=== PATIENT | male | born 1945 | race American Indian/Alaskan Native ===

== ENCOUNTER 2017-03-18 16:53 | Observation (INO) | payer BC, MEDICARE ==
--- NOTE | 2017-03-18 17:48 | ED PDOC ---
Arrival/HPI - General Chief Complaint: GI Problem Time Seen by Provider: 03/18/17 16:58 Historian: Patient - History of Present Illness Narrative History of Present Illness (Text): 03/18/17 17:48 This 71 yo male presents to this ED c/o severe anaemia. Patient stated he had blood test last week, which result was given to patient today with Hg of 7. Patient stated he has had dark stool x 3-4 months. Patient has had a colonoscopy x 5 weeks ago, and Endoscopy x 1 week ago, which both were normal. Patient also noted a abdominal pain for one month, which it had improved 2 weeks ago. He said Dr. Mayer had ordered him to have a CT scan which was done 2 weeks ago. Patient denies dizziness, syncope, sob, cp, hematuria, fever, recent travel, or sick contact. Patient noted a PSA of 5. Patient stated he had a CT scan of abdomen pelvis x 2 weeks ago. 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 - Psychiatric Hx Substance Use: No - Anesthesia Hx Anesthesia: Yes Hx Anesthesia Reactions: No Hx Malignant Hyperthermia: No Family/Social History - Physician Review Nursing Documentation Reviewed: Yes Family/Social History: Other (noncontributory) Smoking Status: Never Smoked Hx Alcohol Use: No Hx Substance Use: No Allergies/Home Meds Allergies/Adverse Reactions: Allergies No Known Allergies Allergy (Verified 03/18/17 17:19) Home Medications: Home Meds Medication Instructions Recorded Confirmed Dicyclomine [Bentyl] 10 mg PO DAILY 03/18/17 03/18/17 Pantoprazole [Protonix EC Tab] 40 mg PO DAILY 03/18/17 03/18/17 Simvastatin [Zocor] 20 mg pe PO DAILY 03/18/17 03/18/17 Review of Systems - Review of Systems Constitutional: Normal. absent: Fatigue, Weight Change, Fevers Eyes: Normal ENT: Normal Respiratory: Normal. absent: SOB, Cough Cardiovascular: Normal. absent: Chest Pain, Palpitations Gastrointestinal: Normal. absent: Abdominal Pain, Nausea, Vomiting Genitourinary Male: Normal Musculoskeletal: Normal Skin: Normal Neurological: Normal Endocrine: Normal Hemo/Lymphatic: Normal Psychiatric: Normal Physical Exam Vital Signs Temp Pulse Resp BP Pulse Ox 03/18/17 17:50 98.2 F 78 18 146/69 100 03/18/17 16:54 99.3 F 83 18 146/69 100 Temperature: Afebrile Blood Pressure: Normal Pulse: Regular Respiratory Rate: Normal Appearance: Positive for: Well-Appearing, Non-Toxic, Comfortable Pain Distress: None Mental Status: Positive for: Alert and Oriented X 3 - Systems Exam Head: Present: Atraumatic, Normocephalic Pupils: Present: PERRL Extroacular Muscles: Present: EOMI Conjunctiva: Present: Normal Mouth: Present: Moist Mucous Membranes Neck: Present: Normal Range of Motion Respiratory/Chest: Present: Clear to Auscultation, Good Air Exchange. No: Respiratory Distress, Accessory Muscle Use Cardiovascular: Present: Regular Rate and Rhythm, Normal S1, S2. No: Murmurs Abdomen: Present: Normal Bowel Sounds. No: Tenderness, Distention, Peritoneal Signs Back: Present: Normal Inspection Upper Extremity: Present: Normal Inspection. No: Cyanosis, Edema Lower Extremity: Present: Normal Inspection. No: Edema Neurological: Present: GCS=15, CN II-XII Intact, Speech Normal Skin: Present: Warm, Dry, Normal Color. No: Rashes Psychiatric: Present: Alert, Oriented x 3, Normal Insight, Normal Concentration Medical Decision Making ED Course and Treatment: 03/18/17 19:16 Dr. Omalley spoke with Dr. Mayer who agreed with plan for observation admission I spoke with Patient regarding HG result, and he agreed with plan for observation. Patient agreed with plan for transfusion, and signed consent. Re-evaluation Time: 19:16 Reassessment Condition: Re-examined, Improving,but remains with symptoms - Lab Interpretations Lab Results: 03/18/17 18:30 03/18/17 18:30 Lab Results 03/18/17 18:43: Urine Color Yellow, Urine Appearance Clear, Urine pH 6.5, Ur Specific [place] 1.010, Urine Protein Negative, Urine Glucose (UA) Negative, Urine Ketones Negative, Urine Blood Negative, Urine Nitrate Negative, Urine Bilirubin Negative, Urine Urobilinogen 0.2, Ur Leukocyte Esterase Negative 03/18/17 18:30: Blood Type Pending, Antibody Screen Pending, BBK History Checked No verified bt 03/18/17 18:30: Sodium 140, Potassium 4.1, Chloride 105, Carbon Dioxide 26, Anion Gap 13, BUN 13, Creatinine 0.9, Est GFR ( Amer) > 60, Est GFR (Non- Af Amer) > 60, Random Glucose 97, Calcium 9.1, Total Bilirubin 0.7, AST 26, ALT 33, Alkaline Phosphatase 58, Lactate Dehydrogenase 395, Total Creatine Kinase 141, Troponin I < 0.01, Total Protein 6.6, Albumin 4.0, Globulin 2.6, Albumin/ Globulin Ratio 1.5, Amylase 92, Lipase 103 03/18/17 18:30: PT 13.8 H, INR 1.26 H, APTT 30.2 03/18/17 18:30: WBC 9.2, RBC 2.81 L, Hgb 6.9 L*, Hct 22.9 L, MCV 81.5, MCH 24.6 L, MCHC 30.1 L, RDW 15.8 H, Plt Count 273, MPV 9.0, Gran % 75.2 H, Lymph % (Auto ) 14.5 L, Whitley % (Auto) 6.6 H, Eos % (Auto) 3.5, Baso % (Auto) 0.2, Gran # 6.88 H, Lymph # 1.3, Whitley # 0.6, Eos # 0.3, Baso # 0.02 I have reviewed the lab results: Yes Interpretation: Abnormal lab values - RAD Interpretation Narrative RAD Interpretations (Text): 03/18/17 19:18 Patient Name / ID : JARAD HOLLAND / [id number] Exam Date : 03/18/2017 18:08:18 ( Approved ) Study Comment : Sex / Age : M / 71Y Creator : Diego Waters MD Dictator : Diego Waters MD Executor Of Estate : Director Of Institutional Giving : Diego Waters MD Approver2 : Report Date : 03/18/2017 18:54:34 My Comment : HISTORY: admission COMPARISON: No prior. FINDINGS: LUNGS: No active pulmonary disease. PLEURA: No significant pleural effusion identified, no pneumothorax apparent. CARDIOVASCULAR: Normal. OSSEOUS STRUCTURES: Prominent dextroscoliotic thoracic spinal deformity noted VISUALIZED UPPER ABDOMEN: Normal. OTHER FINDINGS: None. IMPRESSION: No acute cardiopulmonary disease appreciated. Prominent dextroscoliotic thoracic spinal deformity appreciated. Radiology Orders: 03/18/17 18:00 CHEST PORTABLE [RAD] Stat - EKG Interpretation Interpreted by ED Physician: Yes (NSR @ 69 bpm. Normal interval) Type: 12 lead EKG Comparison: No previous EKG avail. - Medication Orders Current Medication Orders: Sodium Chloride (Sodium Chloride 0.45%) 1,000 mls @ 30 mls/hr IV .Q24H [facility] Pantoprazole Sodium (Protonix Inj) 40 mg IVP DAILY [facility] Discontinued Medications Pantoprazole Sodium (Protonix Inj) 80 mg IVP STAT STA Stop: 03/18/17 18:01 Last Admin: 03/18/17 18:40 Dose: Not Given Non-Admin Reason: Patient Refused Disposition/Present on Arrival - Present on Arrival Any Indicators Present on Arrival: No History of DVT/PE: No History of Uncontrolled Diabetes: No Urinary Catheter: No History of Decub. Ulcer: No History Surgical Site Infection Following: None - Disposition Have Diagnosis and Disposition been Completed?: Yes Diagnosis: GIB (gastrointestinal bleeding), Anemia Disposition: HOSPITALIZED Disposition Time: 19:43 Patient Plan: Admission Patient Problems: Current Active Problems Problem Status Onset GIB (gastrointestinal bleeding) Acute Condition: STABLE Referrals: Reid Mayer DO [Primary Care Provider] - Follow up with primary Forms: [employer] ([place])
[2017-03-18 18:39] LABS: BASO # 0.02 K/mm3 (0.0-2.0); BASO % 0.2 % (0.0-3.0); EOS # 0.3 (0.0-0.7); EOS % 3.5 % (1.5-5.0); GRAN # 6.88 (1.4-6.5); GRAN % 75.2 % (50.0-68.0); LYMPH # 1.3 (1.2-3.4); LYMPH % 14.5 % (22.0-35.0); MEAN CELL VOLUME 81.5 fl (80.0-105.0); MEAN CORPUSCULAR HEMOGLOBIN 24.6 pg (25.0-35.0); MEAN CORPUSCULAR HGB CONC 30.1 g/dl (31.0-37.0); MONO # 0.6 (0.1-0.6); MONO % 6.6 % (1.0-6.0); RED CELL DISTRIBUTION WIDTH 15.8 % (11.5-14.5); WHITE BLOOD COUNT 9.2 10^3/ul (4.5-11.0)
[2017-03-18 18:42] LABS: HEMATOCRIT 22.9 % (42.0-52.0)
[2017-03-18 18:48] LABS: PH,URINE 6.5 (4.7-8.0); URINE BILIRUBIN NEGATIVE (NEGATIVE); URINE BLOOD NEGATIVE (NEGATIVE); URINE GLUCOSE (UA) NEGATIVE (NEGATIVE); URINE KETONE NEGATIVE (NEGATIVE); URINE LEUKOCYTE ESTERASE NEGATIVE Leu/uL (NEGATIVE); URINE PROTEIN NEGATIVE mg/dL (<30 mg/dL); URINE UROBILINOGEN 0.2 E.U./dL (<1 E.U./dL)
[2017-03-18 18:49] LABS: URINE APPEARANCE CLEAR (CLEAR); URINE COLOR YELLOW (YELLOW)
[2017-03-18 18:49] LABS: INR 1.26 (0.93-1.08); PARTIAL THROMBOPLASTIN TIME 30.2 Seconds (25.1-36.5)
[2017-03-18 18:53] LABS: ALB/GLOB RATIO 1.5 (1.1-1.8); ALKALINE PHOSPHATASE 58 U/L (38-126); ALT/SGPT 33 U/L (7-56); AMYLASE 92 U/L (35-125); AST/SGOT 26 U/L (17-59); BILIRUBIN,TOTAL 0.7 mg/dL (0.2-1.3); BLOOD UREA NITROGEN 13 mg/dL (7-21); CALCIUM 9.1 mg/dL (8.4-10.5); CARBON DIOXIDE 26 mmol/L (21-33); CHLORIDE 105 mmol/L (98-107); GFR AFRICAN-AMERICAN > 60; GLUCOSE,RANDOM 97 mg/dL (70-110); LIPASE 103 U/L (23-300); POTASSIUM 4.1 mmol/L (3.6-5.0); SODIUM 140 mmol/L (132-148); TOTAL PROTEIN 6.6 g/dL (5.8-8.3)
--- NOTE | 2017-03-18 18:55 | RAD ---
HISTORY: admission COMPARISON: No prior. FINDINGS: LUNGS: No active pulmonary disease. PLEURA: No significant pleural effusion identified, no pneumothorax apparent. CARDIOVASCULAR: Normal. OSSEOUS STRUCTURES: Prominent dextroscoliotic thoracic spinal deformity noted VISUALIZED UPPER ABDOMEN: Normal. OTHER FINDINGS: None. IMPRESSION: No acute cardiopulmonary disease appreciated. Prominent dextroscoliotic thoracic spinal deformity appreciated.
[2017-03-18 19:04] LABS: TROPONIN I < 0.01 ng/mL
[2017-03-18] MEDS ORDERED: Sodium Chloride 0.45% 1,000 ML IV SCH (19:30)
--- NOTE | 2017-03-18 21:50 | CARD ---
APPROVED REPORT EKG Measurement Heart [id number] <Conclusion> Normal sinus rhythm Minimal voltage criteria for LVH, may be normal variant Borderline ECG
--- NOTE | 2017-03-19 01:39 | HP ---
HISTORY OF PRESENT ILLNESS: I spoke to [place] today. I did an outpatient blood test on him. He was not feeling well. Also, he has been loosing weight. He had a 30 plus pound weight loss. He also had a CAT scan of the abdomen and pelvis, he told me on that of 2 week's ago and that was normal by his bus and sys integration senior manager, Dr. Olguin, but he comes in today because I called him to come to the emergency room because his hemoglobin was 7.1 and in the emergency room here at 6.9. He had a history of weight loss. He also had a negative CAT scan of the abdomen and pelvis done 2 week's ago. This is a 71-year-old man who has got some lethargy, tiredness, weakness. He is anemic, severe with 6.9 hemoglobin in the emergency room, and we are going to put him in for transfusions, get a GI consult, and IV fluids. He has a PSA of 5 in the past. No chest pain. No shortness of breath. No hematuria. No fever. No recent travel, No sick contacts. No dizziness. No syncope. PAST MEDICAL HISTORY: He has been having GI bleed for the past 24 years. He has high cholesterol. PAST SURGICAL HISTORY: No real surgical history. SOCIAL HISTORY: No smoking. No drinking. No drugs. FAMILY HISTORY: Has dementia and hypertension in the family. ALLERGIES: NO KNOWN DRUG ALLERGIES. MEDICATIONS: Takes Bentyl, Protonix and Zocor. REVIEW OF SYSTEMS: He has a weight loss of 30 pounds in the past 3 to 4 months. No vision changes, no hearing changes. No sore throat. No neck pain. No chest pain or shortness of breath. No abdominal pain. No nausea, vomiting, constipation, diarrhea, but he does have a history of GI bleed in the past. He does not take any NSAIDs. No extremity issues, no skin issues, no nervous, no anxiety, no sweats. PHYSICAL EXAMINATION VITAL SIGNS: He has a 98.2 temp, 78 pulse, 18 respiratory rate, 146/69 blood pressure, 100% O2 sat on room air. GENERAL: He is well appearing, comfortable, non-toxic. No chest pain or anything like that. He is comfortable. He understands the situation. Alert and oriented x3. HEENT: Head is atraumatic and normocephalic. Extraocular muscles are intact. Pupils are equal, reactive to light and accommodation. Throat is moist. NECK: Supple. HEART: Regular rate. Normal S1, S2. LUNGS: Clear to auscultation bilaterally. No wheezes, no rhonchi, no rales. ABDOMEN: Soft and nontender. Positive bowel sounds. No guarding. No rebound. No CVA tenderness. Normal exam. EXTREMITIES: No edema. NEUROLOGIC: GCS is 15. Cranial nerves II through XII grossly intact. Normal speech. Alert and oriented x3. SKIN: Skin is warm and dry. No rashes or ulcers. LYMPHATICS: Thyroid is midline. No palpable appreciable lymphadenopathy. LABORATORY DATA: He has had lab tests here. He has a urine that is clean, 140 sodium, potassium 4.1, BUN 13, creatinine 0.9, GFR is greater than 60, sugar is 97, calcium is 9.1, total bilirubin is 0.7, AST is 26, ALT is 33, alkaline phosphatase 58. Lactate dehydrogenase is 395. Total creatinine kinase is 141. Troponin I is less than 0.01. Total protein is 6.6. Albumin is 4. Globulin is 2.6. Amylase is 92, lipase is 103. INR is 1.26. He has a 9.2 white count, 6.9 hemoglobin, 22.9 hematocrit with 273 platelets. Chest x-ray is showing no acute cardiopulmonary disease appreciated. Prominent dextroscoliosis thoracic spinous deformity. He is here with acute anemia, weight loss. He is being followed on the outpatient by Dr. Olguin, GI. We will get Dr. Vaughn here in [place]. My plan is to put him in and transfuse him to get him above 10. He had a CAT scan 2 weeks' ago that was normal. We will get him up tomorrow observation for 24 hours, transfuse him above 10 and then follow up outpatient GI workup. He is extremely anemic. Reid Mayer DO
[2017-03-19 04:05] VITALS: BMI 22.0
[2017-03-19 07:09] LABS: HEMATOCRIT 24.9 % (42.0-52.0); MEAN CELL VOLUME 80.6 fl (80.0-105.0); MEAN CORPUSCULAR HEMOGLOBIN 24.9 pg (25.0-35.0); MEAN CORPUSCULAR HGB CONC 30.9 g/dl (31.0-37.0); MEAN PLATELET VOLUME 9.3 fl (7.0-11.0); RED CELL DISTRIBUTION WIDTH 16.1 % (11.5-14.5); WHITE BLOOD COUNT 7.4 10^3/ul (4.5-11.0)
[2017-03-19 07:14] LABS: ALB/GLOB RATIO 1.4 (1.1-1.8); ALKALINE PHOSPHATASE 51 U/L (38-126); ALT/SGPT 28 U/L (7-56); AST/SGOT 30 U/L (17-59); BILIRUBIN,TOTAL 0.8 mg/dL (0.2-1.3); BLOOD UREA NITROGEN 13 mg/dL (7-21); CALCIUM 8.9 mg/dL (8.4-10.5); CARBON DIOXIDE 26 mmol/L (21-33); CHLORIDE 109 mmol/L (98-107); GFR AFRICAN-AMERICAN > 60; GLUCOSE,RANDOM 98 mg/dL (70-110); POTASSIUM 3.9 mmol/L (3.6-5.0); SODIUM 141 mmol/L (132-148); TOTAL PROTEIN 5.9 g/dL (5.8-8.3)
--- NOTE | 2017-03-19 09:32 | CP.PCM.CON ---
<Lucy Powell - Last Filed: 03/19/17 12:15> History of Present Illness - History of Present Illness History of Present Illness: GI Fellow PGY4 Consult Note This is a 71yM with pmhx of HLD and GI bleeding presenting to the ER sent by PCP Dr. Mayer for anemia with Hgb 6.9. Pt reports a hx of GI bleeding over 45years with hx of duodenal ulcer in the past. Pt denies hx of H.pylori, NSAID use. Pt reports he has been okay for 10yr but about 4months ago started having dark stools and associated abdominal pain. Pt's Hgb has been trending down and was seen by his GI Dr. Olguin and had EGDx2 within 120 days that was negative and Colonoscopy 1month ago that was negative. Pt reports he has had multiple scopes over the years with no clear etiology of GI bleed except duodenal ulcer found one time. He has also been seen by Hematology with bone seneca biopsy 20+ years ago with no diagnosis. Pt had a capsule study 10+ years ago that was negative but nothing recently. Pt also reports 25-30pound weight loss in 4months unintentional and had a CT scan A/P by PCP 2 weeks ago that was reportedly normal except prostate enlargement with PSA of 5 and plan for outpt prostate biopsy. Pt has received 1U PRBCs with Hgb of 7.7 this morning. 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 - PSYCHIATRIC Hx Substance Use: No - SURGICAL HISTORY Hx Appendectomy: Yes - ANESTHESIA Hx Anesthesia: Yes Hx Anesthesia Reactions: No Hx Malignant Hyperthermia: No Meds Allergies/Adverse Reactions: Allergies Allergy/AdvReac Type Severity Reaction Status Date / Time No Known Allergies Allergy Verified 03/18/17 17:19 - Medications Medications: Current Medications Sodium Chloride (Sodium Chloride 0.45%) 1,000 mls @ 30 mls/hr IV .Q24H [facility] Last Admin: 03/19/17 01:28 Dose: 30 mls/hr Pantoprazole Sodium (Protonix Inj) 40 mg IVP BID [facility] Physical Exam - Constitutional Appears: Well, Non-toxic, No Acute Distress - Head Exam Head Exam: ATRAUMATIC, NORMAL INSPECTION, NORMOCEPHALIC - Eye Exam Eye Exam: EOMI, Normal appearance, PERRL Pupil Exam: PERRL - ENT Exam ENT Exam: Mucous Membranes Moist, Normal Exam - Neck Exam Neck exam: Positive for: Normal Inspection - Respiratory Exam Respiratory Exam: Clear to Auscultation Bilateral, NORMAL BREATHING PATTERN - Cardiovascular Exam Cardiovascular Exam: REGULAR RHYTHM, RRR, +S1, +S2 - GI/Abdominal Exam GI & Abdominal Exam: Normal Bowel Sounds, Soft. absent: Distended, Organomegaly , Tenderness - Rectal Exam Rectal Exam: Deferred - Extremities Exam Extremities exam: Positive for: full ROM, normal inspection - Back Exam Back exam: NORMAL INSPECTION - Neurological Exam Neurological exam: Alert, Oriented x3 - Psychiatric Exam Psychiatric exam: Normal Affect, Normal Mood - Skin Skin Exam: Dry, Intact, Normal Color, Warm Results - Vital Signs Recent Vital Signs: Last Vital Signs Temp 97.9 F 03/19/17 08:42 Pulse 72 03/19/17 08:42 Resp 20 03/19/17 08:42 BP 109/61 03/19/17 08:42 Pulse Ox 97 03/19/17 08:42 - Labs Result Diagrams: 03/19/17 09:40 03/19/17 06:40 Labs: Laboratory Results - last 24 hr 03/19/17 03/19/17 06:40 06:40 WBC 7.4 RBC 3.09 L Hgb 7.7 L Hct 24.9 L MCV 80.6 MCH 24.9 L MCHC 30.9 L RDW 16.1 H Plt Count 276 MPV 9.3 Sodium 141 Potassium 3.9 Chloride 109 H Carbon Dioxide 26 Anion Gap 10 BUN 13 Creatinine 0.9 Est GFR ( Amer) > 60 Est GFR (Non-Af Amer) > 60 Random Glucose 98 Calcium 8.9 Total Bilirubin 0.8 AST 30 ALT 28 Alkaline Phosphatase 51 Total Protein 5.9 Albumin 3.4 Globulin 2.5 Albumin/Globulin Ratio 1.4 Assessment & Plan - Assessment and Plan (Free Text) Assessment: This is a 71yM presenting with anemia Hgb 6.9. 1. Anemia 2. Hx of GI bleed Plan: -Continue supportive care with blood transfusion with Hgb >7.0 -No active bleeding at this time, hemodynamically stable, monitor H/H and transfuse as needed -Pt had an EGD 1 week ago and colonoscopy 1 month ago that were negative -Recommend close follow up with primary GI Dr. Olguin as an outpt and pt will benefit from Capsule study to evaluate small bowel for GI bleed -No plan for emergent endoscopic evaluation at this time -Continue protonix po daily -Diet as tolerated -Please call with any questions or concerns <Alexandria Baltazar MD - Last Filed: 03/19/17 16:13> Meds - Medications Medications: Current Medications Sodium Chloride (Sodium Chloride 0.45%) 1,000 mls @ 30 mls/hr IV .Q24H [facility] Last Admin: 03/19/17 01:28 Dose: 30 mls/hr Pantoprazole Sodium (Protonix Inj) 40 mg IVP BID [facility] Last Admin: 03/19/17 09:08 Dose: 40 mg Results - Vital Signs Recent Vital Signs: Last Vital Signs Temp 98.1 F 03/19/17 16:04 Pulse 62 03/19/17 16:04 Resp 16 03/19/17 16:04 BP 122/68 03/19/17 16:04 Pulse Ox 97 03/19/17 08:42 - Labs Result Diagrams: 03/19/17 09:40 03/19/17 06:40 Labs: Laboratory Results - last 24 hr 03/19/17 03/19/17 03/19/17 06:40 06:40 09:40 WBC 7.4 7.2 RBC 3.09 L 3.13 L Hgb 7.7 L 7.9 L Hct 24.9 L 25.3 L MCV 80.6 80.8 MCH 24.9 L 25.2 MCHC 30.9 L 31.2 RDW 16.1 H 16.2 H Plt Count 276 243 MPV 9.3 8.7 Sodium 141 Potassium 3.9 Chloride 109 H Carbon Dioxide 26 Anion Gap 10 BUN 13 Creatinine 0.9 Est GFR ( Amer) > 60 Est GFR (Non-Af Amer) > 60 Random Glucose 98 Calcium 8.9 Total Bilirubin 0.8 AST 30 ALT 28 Alkaline Phosphatase 51 Total Protein 5.9 Albumin 3.4 Globulin 2.5 Albumin/Globulin Ratio 1.4 Attending/Attestation - Attestation I have personally seen and examined this patient.: Yes I have fully participated in the care of the patient.: Yes I have reviewed all pertinent clinical information: Yes Notes (Text): 03/19/17 16:11 Patient seen with GI fellow. This is a 71 yr old M presenting with anemia Hgb 6.9 without overt Gi bleeding. He is s/p EGD 1 week ago and colonoscopy 1 month ago which was negative at [facility] with Dr Olguin. He has follow up appointment with outside GI. Likely needs capsule study. Hemodynamically stable. s/p blood transfusions with appropriate response. Diet as tolerated. Thank you for letting us participate in the care of your patient
[2017-03-19 09:58] LABS: HEMATOCRIT 25.3 % (42.0-52.0); MEAN CELL VOLUME 80.8 fl (80.0-105.0); MEAN CORPUSCULAR HEMOGLOBIN 25.2 pg (25.0-35.0); MEAN CORPUSCULAR HGB CONC 31.2 g/dl (31.0-37.0); MEAN PLATELET VOLUME 8.7 fl (7.0-11.0); RED CELL DISTRIBUTION WIDTH 16.2 % (11.5-14.5); WHITE BLOOD COUNT 7.2 10^3/ul (4.5-11.0)
[2017-03-19 11:10] VITALS: RESP 16
--- NOTE | 2017-03-19 13:36 | DS ---
HISTORY OF PRESENT ILLNESS: I saw [place], resting comfortably this morning, slept well last night. He had some blood transfused. In no acute distress. No chest pain or shortness of breath. No abdominal pain. PHYSICAL EXAMINATION: VITAL SIGNS: He has 98.1 temperature, 71 pulse, 122/63 blood pressure, and 20 respiratory rate. HEENT: Head is atraumatic and normocephalic. Throat is moist. NECK: Supple. HEART: Regular rate. LUNGS: Clear to auscultation. ABDOMEN: Soft and nontender. Positive bowel sounds. No guarding. No rebound. No CVA tenderness. EXTREMITIES: There is no edema. LABORATORY DATA: He has a white count that is 7.4, hemoglobin up to 7.7, his hematocrit is 24.9, and platelets are 276. He has a 141 sodium, potassium is 3.9, BUN is 13, and creatinine is 0.9. GFR is greater than 60. Sugar is 98, calcium is 8.9, and total bilirubin is 0.8. AST is 30, ALT is 28, alkaline phosphatase is 212, and total protein is 5.9. Troponin I is less than 0.01. Albumin is 2.5. ASSESSMENT AND PLAN: He is going to get 2 more units of packed red blood cells today. I am going to get a STAT CBC afterwards and hoping to discharge him later today to further outpatient workup with his manager pest, on the outpatient and hopefully he is going to do very well. He is here for acute anemia, asymptomatic for the most part. He is on observation. Once we get his hemoglobin above 10 or close to, we will send him to outpatient workup for Gastroenterology. Reid Mayer DO MELANIA
[2017-03-19 16:41] VITALS: O2SAT 100
[2017-03-19 19:35] VITALS: BP 157/74; PULSE 64; TEMP 97.9
[2017-03-19 19:59] LABS: HEMATOCRIT 33.3 % (42.0-52.0); MEAN CORPUSCULAR HEMOGLOBIN 26.4 pg (25.0-35.0); MEAN CORPUSCULAR HGB CONC 31.8 g/dl (31.0-37.0); MEAN PLATELET VOLUME 9.6 fl (7.0-11.0); RED CELL DISTRIBUTION WIDTH 16.1 % (11.5-14.5); WHITE BLOOD COUNT 9.6 10^3/ul (4.5-11.0)
== END 2017-03-19 22:00 | disposition home or self-care (01) ==
LOC: ED 16:53 → MERGE 19:07 → ERH 19:07 → 5RNO 20:51
PROVIDERS: ADMIT Family Medicine; ATTEND Family Medicine
DX: D64.9 Anemia, unspecified (principal)
CPT/HCPCS: 36415; 36430; 71010; 80053; 81003; 82150; 82550; 83615; 83690; 84484; 85025; 85027; 85610; 85730; 86850; 86860; 86870; 86900; 86920; 86921; 86922; 93005; 99284; C9113; J7030; P9016

== ENCOUNTER 2017-06-02 06:25 | Day surgery (SDC) | payer BC, MEDICARE ==
[2017-05-30 12:05] VITALS: BMI 21.9
[2017-06-02] MEDS ORDERED: Lidocaine 2% Inj (20ml) ONE (07:08)
[2017-06-02] MEDS ORDERED: Midazolam 2 MG/2 ML VIAL ONE ×2 (07:09→08:59)
[2017-06-02] MEDS ORDERED: HEPARIN SODIUM/NS 2,000 ML IV ONE (07:09)
[2017-06-02] MEDS ORDERED: Iodixanol 320 MG/ML 200 ML BOTTLE IV ONE (07:09)
[2017-06-02 07:21] LABS: BASO # 0.04 K/mm3 (0.0-2.0); BASO % 0.6 % (0.0-3.0); EOS # 0.3 (0.0-0.7); EOS % 4.6 % (1.5-5.0); GRAN # 4.85 (1.4-6.5); GRAN % 69.4 % (50.0-68.0); LYMPH # 1.2 (1.2-3.4); LYMPH % 16.8 % (22.0-35.0); MEAN CELL VOLUME 75.9 fl (80.0-105.0); MEAN CORPUSCULAR HEMOGLOBIN 21.8 pg (25.0-35.0); MEAN CORPUSCULAR HGB CONC 28.7 g/dl (31.0-37.0); MONO # 0.6 (0.1-0.6); MONO % 8.6 % (1.0-6.0); RBC 3.03 10^6/uL (3.5-6.1); RED CELL DISTRIBUTION WIDTH 19.4 % (11.5-14.5)
[2017-06-02 07:29] LABS: HEMOGLOBIN 6.6 g/dL (14.0-18.0)
[2017-06-02 07:31] LABS: BLOOD UREA NITROGEN 12 mg/dL (7-21); CALCIUM 9.5 mg/dL (8.4-10.5); GFR AFRICAN-AMERICAN > 60; GFR NON-AFRICAN AMERICAN > 60; HDL CHOLESTEROL 44 mg/dL (29-60)
[2017-06-02 07:36] LABS: INR 1.18 (0.93-1.08); PARTIAL THROMBOPLASTIN TIME 27.5 Seconds (25.1-36.5); PROTHROMBIN TIME 13.6 SECONDS (9.4-12.5)
[2017-06-02 07:42] LABS: LDL CHOLESTEROL 62 mg/dL (0-129)
[2017-06-02] MEDS ORDERED: Iohexol 350mgl/ml 50 ML ONE (09:13)
[2017-06-02] MEDS ORDERED: Sodium Chloride 0.9% 1,000 ML IV SCH (09:30)
[2017-06-02 10:09] VITALS: TEMP 97.8
--- NOTE | 2017-06-02 10:19 | CARDCATH ---
PROCEDURE DATE: 06/02/2017 HISTORY: The patient is a 72-year-old male who presents with persistent exertional shortness of breath and angina. He is known to have marked anemia without evidence for GI blood loss. He also suffers from hypertension and hypercholesterolemia; because of this, cardiac catheterization was recommended. PROCEDURE: Left heart catheterization with coronary arteriography and left ventriculogram. The right femoral artery was cannulated with a 6-Sinhala sheath. There were no complications. I performed moderate sedation which included the presence of an independent trained observer that assisted in monitoring the patient's level of consciousness and physiologic status. After administration of Versed and fentanyl, my intra-service time was 15 minutes. Findings on catheterization revealed the left ventricle that contracted normally. Estimated ejection fraction of 60%. Supra-aortic valvular injection revealed no aortic insufficiency. The patient's coronary arteries were right dominant circulation. The RCA was free of significant disease. The left main artery and LAD revealed diffuse calcification. The LAD had no critical lesions. The LAD in its midportion revealed a 50% stenosis. At the ostium of the diagonal vessel, there was a 60% stenosis noted. The circumflex artery and obtuse marginal branches were free of significant disease. Angio-Seal was used to close the femoral artery site. The patient tolerated the procedure well. In summary, the procedure revealed normal LV function. Calcification in the coronary tree. A 50% stenosis in the mid LAD with a 60% stenosis in the ostium of the diagonal vessel. Given these findings, the patient's treatment should be medical therapy with aspirin as well as statin therapy. The patient will need a galley stripper to investigate the reason for his severe anemia. Braeden Barrios MD
[2017-06-02 13:54] VITALS: PULSE 69; O2SAT 99
--- NOTE | 2017-06-02 14:01 | CARD ---
APPROVED REPORT EKG Measurement Heart [id number] <Conclusion> Normal sinus rhythm Moderate voltage criteria for LVH, may be normal variant Borderline ECG
[2017-06-02 15:21] VITALS: BP 124/64; RESP 20
== END 2017-06-02 15:30 | disposition home or self-care (01) ==
LOC: CATH 06:25
PROVIDERS: ATTEND Internal Medicine Cardiovascular Disease
DX: I25.119 Atherosclerotic heart disease of native coronary artery with unspecified angina pectoris (principal); D64.9 Anemia, unspecified; R06.02 Shortness of breath; I10 Essential (primary) hypertension; E78.00 Pure hypercholesterolemia, unspecified
CPT/HCPCS: 36415; 80048; 80061; 85025; 85610; 85730; 86850; 86870; 86900; 93005; 93458; 99152; C1760; C1769; C2629; J1644; J2250; J3010; J7030; J7040; Q9967

== ENCOUNTER 2017-06-06 17:16 | Observation (INO) | payer BC, MEDICARE ==
[2017-06-06 17:17] VITALS: BMI 21.9
--- NOTE | 2017-06-06 18:16 | ED PDOC ---
Arrival/HPI - General Chief Complaint: Abnormal Labs Time Seen by Provider: 06/06/17 17:35 Historian: Patient - History of Present Illness Narrative History of Present Illness (Text): 06/06/17 18:15 A 72 year old male was sent in by PMD to the emergency department for low blood count. Patient reports he saw PMD a few days ago, had blood work done. Notes he had a catheterization done this week. Patient denies any abdominal pain, blood in stools, vomiting or any other complaints at this time. PMD: Dr. Bravo Symptom Onset: Sudden Symptom Course: Unchanged Activities at Onset: Rest Context: Home Past Medical History - Provider Review Nursing Documentation Reviewed: Yes - Cardiac Hx Cardiac Disorders: No Hx Pacemaker: No - Pulmonary Hx Respiratory Disorders: No - Neurological Hx Neurological Disorder: No Hx Paralysis: No - HEENT Hx HEENT Disorder: No - Renal Hx Renal Disorder: No - Endocrine/Metabolic Hx Endocrine Disorders: No - Hematological/Oncological Hx Blood Disorders: Yes Hx Blood Transfusions: Yes (03/2017) Hx Blood Transfusion Reaction: No - Integumentary Hx Dermatological Disorder: No - Musculoskeletal/Rheumatological Hx Musculoskeletal Disorders: No - Gastrointestinal Hx Gastrointestinal Disorders: Yes Other/Comment: 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 - Genitourinary/Gynecological Hx Genitourinary Disorders: No - Psychiatric Hx Psychophysiologic Disorder: No Hx Emotional Abuse: No Hx Physical Abuse: No Hx Substance Use: No - Surgical History Hx Cardiac Catheterization: Yes Other/Comment: Pill cam, colonoscopy - Anesthesia Hx Anesthesia Reactions: No Hx Malignant Hyperthermia: No - Suicidal Assessment Feels Threatened In Home Enviroment: No Family/Social History - Physician Review Nursing Documentation Reviewed: Yes Family/Social History: No Known Family HX Smoking Status: Former Smoker Hx Alcohol Use: Yes ([employer]) Hx Substance Use: No Allergies/Home Meds Allergies/Adverse Reactions: Allergies No Known Allergies Allergy (Verified 06/06/17 17:33) Home Medications: Home Meds Medication Instructions Recorded Confirmed Dicyclomine [Bentyl] 10 mg PO DAILY 03/18/17 06/06/17 Pantoprazole [Protonix EC Tab] 40 mg PO DAILY 03/18/17 06/06/17 Simvastatin [Zocor] 20 mg pe PO DAILY 03/18/17 06/06/17 Aspirin [Ecotrin] 81 mg PO DAILY 05/30/17 06/06/17 Review of Systems - Physician Review All systems were reviewed & negative as marked: Yes - Review of Systems Constitutional: absent: Fevers Gastrointestinal: absent: Abdominal Pain, Stool Changes, Vomiting Physical Exam Vital Signs Reviewed: Yes Vital Signs Temp Pulse Resp BP Pulse Ox 06/06/17 21:33 97.6 F 68 16 139/80 06/06/17 21:00 97.8 F 63 16 129/60 100 06/06/17 20:48 97.8 F 77 16 129/60 06/06/17 20:30 97.2 F L 60 16 130/58 L 06/06/17 19:17 97.8 F 61 16 169/67 H 100 06/06/17 17:25 97.8 F 70 18 153/75 H 99 Temperature: Afebrile Blood Pressure: Hypertensive Pulse: Regular Respiratory Rate: Normal Appearance: Positive for: Well-Appearing, Non-Toxic, Comfortable Pain Distress: None Mental Status: Positive for: Alert and Oriented X 3 - Systems Exam Head: Present: Atraumatic, Normocephalic Pupils: Present: PERRL Extroacular Muscles: Present: EOMI Conjunctiva: Present: Normal Mouth: Present: Moist Mucous Membranes Neck: Present: Normal Range of Motion Respiratory/Chest: Present: Clear to Auscultation, Good Air Exchange. No: Respiratory Distress, Accessory Muscle Use Cardiovascular: Present: Regular Rate and Rhythm, Normal S1, S2. No: Murmurs Abdomen: Present: Normal Bowel Sounds. No: Tenderness, Distention, Peritoneal Signs Back: Present: Normal Inspection Upper Extremity: Present: Normal Inspection. No: Cyanosis, Edema Lower Extremity: Present: Normal Inspection. No: Edema Neurological: Present: GCS=15, CN II-XII Intact, Speech Normal Skin: Present: Warm, Dry, Normal Color. No: Rashes Psychiatric: Present: Alert, Oriented x 3, Normal Insight, Normal Concentration Medical Decision Making ED Course and Treatment: 06/06/17 18:14 Impression: A 72 year old male with low hemoglobin. Plan: -- labs -- Reassess and disposition Prior Visits: Notes and results from previous visits were reviewed. Patient was last seen in the emergency department on 03/18/17 for evaluation of anemia. Progress Notes: 06/06/17 22:21 guiac neg[address] dr bravo bedside - Lab Interpretations Lab Results: 06/06/17 18:10 06/06/17 18:10 Lab Results 06/06/17 18:10: Sodium 141, Potassium 4.6, Chloride 105, Carbon Dioxide 24, Anion Gap 17, BUN 14, Creatinine 0.8, Est GFR ( Amer) > 60, Est GFR (Non- Af Amer) > 60, Random Glucose 88, Calcium 9.7, Total Bilirubin 0.6, AST 26, ALT 28, Alkaline Phosphatase 54, Total Protein 6.2, Albumin 3.5, Globulin 2.7, Albumin/Globulin Ratio 1.3 06/06/17 18:10: PT 14.1 H, INR 1.23 H, APTT 28.5 06/06/17 18:10: WBC 8.3, RBC 2.90 L, Hgb 6.5 L*, Hct 22.9 L, MCV 79.0 L D, MCH 22.4 L, MCHC 28.4 L, RDW 23.0 H, Plt Count 354, MPV 9.5, Gran % 75.9 H, Lymph % (Auto) 11.9 L, [place] % (Auto) 9.3 H, Eos % (Auto) 2.7, Baso % (Auto) 0.2, Gran # 6.29, Lymph # (Auto) 1.0 L, [place] # (Auto) 0.8 H, Eos # (Auto) 0.2, Baso # (Auto ) 0.02 I have reviewed the lab results: Yes - Medication Orders Current Medication Orders: Aspirin (Ecotrin) 81 mg PO DAILY [facility] Atorvastatin Calcium (Lipitor) 10 mg PO DIN [facility] Sodium Chloride (Sodium Chloride 0.45%) 1,000 mls @ 40 mls/hr IV .Q24H LUIS FERNANDO Last Admin: 06/06/17 20:45 Dose: 40 mls/hr eMAR Start Stop Document 06/06/17 20:45 AB (Rec: 06/06/17 20:46 AB [email or web address]) Intravenous Solution Start Date 06/06/17 Start Time 19:00 End Date 06/06/17 Pantoprazole Sodium (Protonix Inj) 40 mg IVP DAILY LUIS FERNANDO - Scribe Statement The provider has reviewed the documentation as recorded by the Olu Sloan Provider Scribe Attestation: All medical record entries made by the Olu were at my direction and personally dictated by me. I have reviewed the chart and agree that the record accurately reflects my personal performance of the history, physical exam, medical decision making, and the department course for this patient. I have also personally directed, reviewed, and agree with the discharge instructions and disposition. Disposition/Present on Arrival - Present on Arrival Any Indicators Present on Arrival: No History of DVT/PE: No History of Uncontrolled Diabetes: No Urinary Catheter: No History of Decub. Ulcer: No History Surgical Site Infection Following: None - Disposition Have Diagnosis and Disposition been Completed?: Yes Diagnosis: Anemia Disposition: HOSPITALIZED Disposition Time: 08:00 Condition: STABLE
[2017-06-06 18:22] LABS: BASO # 0.02 K/mm3 (0.0-2.0); BASO % 0.2 % (0.0-3.0); EOS # 0.2 (0.0-0.7); EOS % 2.7 % (1.5-5.0); GRAN # 6.29 (1.4-6.5); GRAN % 75.9 % (50.0-68.0); LYMPH % 11.9 % (22.0-35.0); MEAN CORPUSCULAR HEMOGLOBIN 22.4 pg (25.0-35.0); MEAN CORPUSCULAR HGB CONC 28.4 g/dl (31.0-37.0); MEAN PLATELET VOLUME 9.5 fl (7.0-11.0); MONO # 0.8 (0.1-0.6); MONO % 9.3 % (1.0-6.0); RBC 2.9 10^6/uL (3.5-6.1); WHITE BLOOD COUNT 8.3 10^3/ul (4.5-11.0)
[2017-06-06 18:28] LABS: HEMOGLOBIN 6.5 g/dL (14.0-18.0)
[2017-06-06 18:33] LABS: INR 1.23 (0.93-1.08); PARTIAL THROMBOPLASTIN TIME 28.5 Seconds (25.1-36.5); PROTHROMBIN TIME 14.1 SECONDS (9.4-12.5)
[2017-06-06 18:34] LABS: ALB/GLOB RATIO 1.3 (1.1-1.8); ALBUMIN 3.5 g/dL (3.0-4.8); ALT/SGPT 28 U/L (7-56); AST/SGOT 26 U/L (17-59); BLOOD UREA NITROGEN 14 mg/dL (7-21); CALCIUM 9.7 mg/dL (8.4-10.5); GFR AFRICAN-AMERICAN > 60; GFR NON-AFRICAN AMERICAN > 60
[2017-06-06] MEDS ORDERED: Sodium Chloride 0.45% 1,000 ML IV SCH (18:45)
[2017-06-06 19:38] VITALS: O2SAT 100
[2017-06-06 22:22] VITALS: RESP 18
--- NOTE | 2017-06-07 02:45 | HP ---
HISTORY OF PRESENT ILLNESS: I spoken to [place] earlier today. I got some blood tests back, which showed 6.6 hemoglobin. He is little bit weak, little short of breath from time to time. For the most part, he is not getting dizzy. I sent him to the emergency room for evaluation and he had a 6.5 hemoglobin. We are going to put him in the hospital for transfusions. He had a cardiac catheterization done this week. He has no abdominal pain. No shortness of breath. No nausea, vomiting. No blood. No bleeding. No dark stools. He has had transfusion in 03/2017. PAST MEDICAL HISTORY: He does have a questionable history of a GI bleeding over the past 24 years. He had a PillCam instead of a colonoscopy, did not want the colonoscopy. FAMILY HISTORY: No known family history. There is Alzheimer's. SOCIAL HISTORY: He is a former smoker. Drinks a few beers. No substance abuse. ALLERGIES: NO KNOWN DRUG ALLERGIES. MEDICATIONS: He is on Bentyl, Protonix, Zocor and Ecotrin. His Zocor is for high cholesterol. REVIEW OF SYSTEMS: No acute vision changes or hearing changes. No sore throat. No neck pain. No chest pain or palpitations. No shortness of breath or cough. No abdominal pain. No nausea, vomiting, constipation, or diarrhea. No stool changes. No leg pain. He is not anxious, not nervous. PHYSICAL EXAMINATION: GENERAL: He is well appearing. Nontoxic. VITAL SIGNS: He has a 97.8 temp, 70 pulse, 18 respiratory rate, 153/75 blood pressure, and 99% O2 sat on room air. HEENT: Head is atraumatic, normocephalic. His extraocular muscles are intact. Pupils equal, round and reactive light and accommodation. Throat is moist. NECK: Supple. HEART: Regular rate. Normal S1, S2. LUNGS: Clear to auscultation bilaterally. ABDOMEN: Soft, nontender. Positive bowel sounds. No guarding, no rebound, no CVA tenderness. EXTREMITIES: Have no edema. NEUROLOGIC: GCS is 15. Cranial nerves II through XII grossly intact. Alert and oriented x3. SKIN: Warm and dry. No appreciated rashes or ulcers. LYMPHS: Thyroid midline. No palpable appreciable lymphadenopathy. LABORATORY DATA: He had some blood tests in the emergency room. He has 141 sodium, potassium 4.6, BUN 14, creatinine 0.8, GFR greater than 60, sugar is 88, calcium is 9.7, total bilirubin is 0.6, AST is 26, ALT is 28, alkaline phosphatase 54. Total protein is 6.2. Albumin is 3.5. INR is 1.23. He has 8.2 white count, hemoglobin 6.5, hematocrit 22.9, platelets of 254. IMPRESSION AND PLAN: He is going to be transfused 2 units of packed red blood cells. He is going to consult with Hematology/Oncology. He is also going to consult with GI. We are going to watch him very closely and could be on IV fluid with transfusion. We will check his labs. Reid Mayer DO
[2017-06-07 08:25] VITALS: BP 129/62; PULSE 63; TEMP 98.3
[2017-06-07 08:30] LABS: HEMOGLOBIN 8.3 g/dL (14.0-18.0); MEAN CELL VOLUME 81.7 fl (80.0-105.0); MEAN CORPUSCULAR HEMOGLOBIN 24.1 pg (25.0-35.0); MEAN CORPUSCULAR HGB CONC 29.5 g/dl (31.0-37.0); MEAN PLATELET VOLUME 9.5 fl (7.0-11.0); RBC 3.44 10^6/uL (3.5-6.1); RED CELL DISTRIBUTION WIDTH 22.2 % (11.5-14.5); WHITE BLOOD COUNT 6.8 10^3/ul (4.5-11.0)
[2017-06-07 08:55] LABS: ALB/GLOB RATIO 1.3 (1.1-1.8); ALBUMIN 3.3 g/dL (3.0-4.8); ALT/SGPT 25 U/L (7-56); AST/SGOT 23 U/L (17-59); BLOOD UREA NITROGEN 10 mg/dL (7-21); GFR AFRICAN-AMERICAN > 60; GFR NON-AFRICAN AMERICAN > 60
[2017-06-07 10:16] LABS: IRON 14 ug/dL (45-180)
[2017-06-07 10:25] LABS: % IRON SATURATION 4 % (20-55); TOTAL IRON BINDING CAPACITY 391 ug/dL (261-462)
--- NOTE | 2017-06-07 10:51 | CP.PCM.CON ---
<Yi Kaurhelena - Last Filed: 06/07/17 10:56> History of Present Illness - History of Present Illness History of Present Illness: GI Fellow PGY4 Consult Note This is a 71yM with pmhx of HLD and GI bleeding presenting to the ER sent by PCP Dr. Mayer for anemia with Hgb 7 an oupt. Pt reports a hx of GI bleeding over 45years with hx of duodenal ulcer in the past. Pt denies hx of H.pylori, NSAID use. Pt reports he has been okay for 10yr but about 4months ago started having dark stools and associated abdominal pain. Pt's Hgb has been trending down and was seen by his GI Dr. Olguin and had EGDx2 within 12 days that was negative and Colonoscopy 1month ago that was negative. Pt reports he has had multiple scopes over the years with no clear etiology of GI bleed except duodenal ulcer found one time. He has also been seen by Hematology with bone pilot point biopsy 20+years ago with no diagnosis. Pt had a capsule study 1 month ago and 10+ years ago, both were neg. He has a hx of prostate enlargement with PSA of 5 and plan for outpt prostate biopsy. Pt has received 2U PRBCs with Hgb of 8.4 this morning. Denies any BRBPR, melena, hematemesis or coffee-ground emesis ROS: A 12pt ROS was negative except as above PmHx: As stated in HPI PsHx: Denies SHx: Pt denies tobacco use but does drink Etoh 2-3 cans 12oz of beer daily FHx: Pt denies family hx of colon or pancreatic cancer Past Patient History - Past Social History Smoking Status: Never Smoked - CARDIAC Hx Cardiac Disorders: No Hx Pacemaker: No - PULMONARY Hx Respiratory Disorders: No - NEUROLOGICAL Hx Neurological Disorder: No - HEENT Hx HEENT Problems: No - RENAL Hx Chronic Kidney Disease: No - ENDOCRINE/METABOLIC Hx Endocrine Disorders: No - HEMATOLOGICAL/ONCOLOGICAL Hx Blood Disorders: Yes Hx Anemia: Yes - INTEGUMENTARY Hx Dermatological Problems: No - MUSCULOSKELETAL/RHEUMATOLOGICAL Hx Musculoskeletal Disorders: No Hx Falls: No - GASTROINTESTINAL Hx Gastrointestinal Disorders: Yes Hx Ulcer: Yes - GENITOURINARY/GYNECOLOGICAL Hx Genitourinary Disorders: Yes Hx Prostate Problems: Yes - PSYCHIATRIC Hx Psychophysiologic Disorder: No Hx Emotional Abuse: No Hx Physical Abuse: No Hx Substance Use: No - SURGICAL HISTORY Hx Surgeries: Yes Hx Appendectomy: Yes Hx Cardiac Catheterization: Yes Other/Comment: Pill cam, colonoscopy - ANESTHESIA Hx Anesthesia Reactions: No Hx Malignant Hyperthermia: No Meds Allergies/Adverse Reactions: Allergies Allergy/AdvReac Type Severity Reaction Status Date / Time No Known Allergies Allergy Verified 06/06/17 17:33 - Medications Medications: Current Medications Aspirin (Ecotrin) 81 mg PO DAILY [facility] Last Admin: 06/07/17 09:11 Dose: 81 mg Atorvastatin Calcium (Lipitor) 10 mg PO DIN [facility] Sodium Chloride (Sodium Chloride 0.45%) 1,000 mls @ 40 mls/hr IV .Q24H [facility] Last Admin: 06/06/17 20:45 Dose: 40 mls/hr Pantoprazole Sodium (Protonix Inj) 40 mg IVP DAILY [facility] Last Admin: 06/07/17 09:11 Dose: 40 mg Physical Exam - Constitutional Appears: Well, No Acute Distress - Head Exam Head Exam: ATRAUMATIC, NORMOCEPHALIC - Eye Exam Eye Exam: EOMI, Normal appearance - ENT Exam ENT Exam: Mucous Membranes Moist, Normal Exam - Neck Exam Neck exam: Positive for: Normal Inspection - Respiratory Exam Respiratory Exam: Clear to Auscultation Bilateral, NORMAL BREATHING PATTERN. absent: Rhonchi, Wheezes, Respiratory Distress - Cardiovascular Exam Cardiovascular Exam: REGULAR RHYTHM, +S1, +S2 - GI/Abdominal Exam GI & Abdominal Exam: Normal Bowel Sounds, Soft. absent: Guarding, Rebound, Rigid - Rectal Exam Rectal Exam: Black Stool, NORMAL INSPECTION - Extremities Exam Extremities exam: Negative for: joint swelling, pedal edema - Neurological Exam Neurological exam: Alert, Oriented x3 - Psychiatric Exam Psychiatric exam: Normal Affect, Normal Mood - Skin Skin Exam: Dry, Intact, Normal Color, Warm Results - Vital Signs Recent Vital Signs: Last Vital Signs Temp 98.3 F 06/07/17 08:00 Pulse 63 06/07/17 08:00 Resp 18 06/07/17 08:00 BP 129/62 06/07/17 08:00 Pulse Ox 100 06/07/17 08:00 - Labs Result Diagrams: 06/07/17 08:19 06/07/17 08:19 Labs: Laboratory Results - last 24 hr 06/06/17 06/07/17 06/07/17 18:45 08:19 08:19 WBC 6.8 RBC 3.44 L Hgb 8.3 L Hct 28.1 L MCV 81.7 MCH 24.1 L MCHC 29.5 L RDW 22.2 H Plt Count 284 MPV 9.5 Sodium 142 Potassium 3.9 Chloride 109 H Carbon Dioxide 24 Anion Gap 13 BUN 10 Creatinine 0.8 Est GFR ( Amer) > 60 Est GFR (Non-Af Amer) > 60 Random Glucose 92 Calcium 9.0 Iron TIBC % Saturation Total Bilirubin 0.6 AST 23 ALT 25 Alkaline Phosphatase 54 Total Protein 5.7 L Albumin 3.3 Globulin 2.4 Albumin/Globulin Ratio 1.3 Blood Type O POSITIVE Antibody Screen Positive Crossmatch See Detail BBK History Checked Patient has bt 06/07/17 10:00 WBC RBC Hgb Hct MCV MCH MCHC RDW Plt Count MPV Sodium Potassium Chloride Carbon Dioxide Anion Gap BUN Creatinine Est GFR ( Amer) Est GFR (Non-Af Amer) Random Glucose Calcium Iron 14 L TIBC 391 % Saturation 4 L Total Bilirubin AST ALT Alkaline Phosphatase Total Protein Albumin Globulin Albumin/Globulin Ratio Blood Type Antibody Screen Crossmatch BBK History Checked Assessment & Plan - Assessment and Plan (Free Text) Assessment: This is a 71yM presenting with anemia Hgb 6.4. s/p 2 units PRBC, hgb now 8.3 1. Anemia 2. Hx of GI bleed Plan: -Continue supportive care with blood transfusion with Hgb >7.0 -No active bleeding at this time, hemodynamically stable, monitor H/H and transfuse as needed -Pt had an EGD and colonoscopy in Feb 2017, Capsule study within 1 month -discussed with hem/onc, will see him as an outpt, possible bone marrow biospsy as outpt -No plan for emergent endoscopic evaluation at this time -Continue protonix po daily -Diet as tolerated -Please call with any questions or concerns D/W Dr. Vaughn <Brian Vaughn Y - Last Filed: 06/07/17 12:12> Meds - Medications Medications: Current Medications Aspirin (Ecotrin) 81 mg PO DAILY [facility] Last Admin: 06/07/17 09:11 Dose: 81 mg Atorvastatin Calcium (Lipitor) 10 mg PO DIN [facility] Sodium Chloride (Sodium Chloride 0.45%) 1,000 mls @ 40 mls/hr IV .Q24H [facility] Last Admin: 06/06/17 20:45 Dose: 40 mls/hr Pantoprazole Sodium (Protonix Inj) 40 mg IVP DAILY [facility] Last Admin: 06/07/17 09:11 Dose: 40 mg Results - Vital Signs Recent Vital Signs: Last Vital Signs Temp 98.3 F 06/07/17 08:00 Pulse 63 06/07/17 08:00 Resp 18 06/07/17 08:00 BP 129/62 06/07/17 08:00 Pulse Ox 100 06/07/17 08:00 - Labs Result Diagrams: 06/07/17 08:19 06/07/17 08:19 Labs: Laboratory Results - last 24 hr 06/06/17 06/07/17 06/07/17 18:45 08:19 08:19 WBC 6.8 RBC 3.44 L Hgb 8.3 L Hct 28.1 L MCV 81.7 MCH 24.1 L MCHC 29.5 L RDW 22.2 H Plt Count 284 MPV 9.5 Sodium 142 Potassium 3.9 Chloride 109 H Carbon Dioxide 24 Anion Gap 13 BUN 10 Creatinine 0.8 Est GFR ( Amer) > 60 Est GFR (Non-Af Amer) > 60 Random Glucose 92 Calcium 9.0 Iron TIBC % Saturation Total Bilirubin 0.6 AST 23 ALT 25 Alkaline Phosphatase 54 Total Protein 5.7 L Albumin 3.3 Globulin 2.4 Albumin/Globulin Ratio 1.3 Blood Type O POSITIVE Antibody Screen Positive Crossmatch See Detail BBK History Checked Patient has bt 06/07/17 10:00 WBC RBC Hgb Hct MCV MCH MCHC RDW Plt Count MPV Sodium Potassium Chloride Carbon Dioxide Anion Gap BUN Creatinine Est GFR ( Amer) Est GFR (Non-Af Amer) Random Glucose Calcium Iron 14 L TIBC 391 % Saturation 4 L Total Bilirubin AST ALT Alkaline Phosphatase Total Protein Albumin Globulin Albumin/Globulin Ratio Blood Type Antibody Screen Crossmatch BBK History Checked Attending/Attestation - Attestation I have personally seen and examined this patient.: Yes I have fully participated in the care of the patient.: Yes I have reviewed all pertinent clinical information: Yes Notes (Text): 06/07/17 12:03 I have seen and examined patient with GI fellow. Agree with above documentation with the following additions. In brief, this is a 72 year old male with history of chronic obscure GI bleeding and anemia who was sent to hospital for evaluation of worsening anemia. He has been followed over the past 25 years for issues related to chronic anemia and had recent endoscopic workup with his primary GI physician Dr. Olguin followed by capsule study with Dr. Hudson at [facility] without clear GI etiology of anemia. He denies abdominal pain, nausea, vomiting, fever/chills, weight loss, rectal bleeding, or change in bowel habits. He did have a bone marrow biopsy performed in the late 1960s but has not regularly followed up with hematology since. Review of vitals from today are normal. Additional physical examination: Abdomen: no palpable hepato/splenomegaly Chronic anemia Obscure GI bleeding - s/p recent EGD/colonoscopy and small bowel capsule study - Diet as tolerated - H/H stable, s/p PRBC transfusion, continue to monitor - Case discussed with Dr. Lala at bedside, will see patient in office on friday for consideration of repeat bone marrow biopsy - Patient currently hemodynamically stable and asymptomatic, from GI perspective can likely be discharged home with outpatient follow up. He will make an appointment to see Dr. Olguin next week. Case discussed with Dr. Mayer.
[2017-06-07 13:00] LABS: FERRITIN 15.8 ng/mL
[2017-06-07 13:30] LABS: FOLATE > 20.0 ng/mL
--- NOTE | 2017-06-07 20:34 | CON ---
DATE: HEMATOLOGY CONSULTATION HISTORY OF PRESENT ILLNESS: This is a 72-year-old man with severe anemia. Evidently, the patient has had multiple transfusions in the last couple of months and he had a workup with Dr. Olguin that included a colonoscopy in February, two upper endoscopies, and a capsule study, all negative. PHYSICAL EXAMINATION: SKIN: No petechiae. No telangiectasia. HEENT: Anicteric. NODES: Nonpalpable in the axillary, cervical, supraclavicular, or inguinal regions. LUNGS: Clear at present. No vertebral tenderness. HEART: S1 and S2. ABDOMEN: Shows no liver, no spleen, no tenderness. No ascites. No rebound. EXTREMITIES: No edema. CENTRAL NERVOUS SYSTEM: No focal finding. LABORATORY DATA: Hemoglobin 6.5 with MCV of 79. We do not have an iron and ferritin on him, but otherwise, his CMP is completely normal. He is sitting up in bed, not complaining of any symptoms and his hemoglobin is now 8.5. He has an appointment to see me at 9:00 on Friday morning. We will reevaluate him at that time, get another blood count on him. I suspect he will need a bone arrow as an outpatient. Wilberto Lala MD
--- NOTE | 2017-06-08 10:27 | DS ---
HOSPITAL COURSE: He got 2 units of packed red blood cells. His hemoglobin went from 6.5 to 8.3. He is doing quite well. Oncology and GI say that he could be discharged. He is feeling well. Sitting up in bed. He is eating his breakfast. PHYSICAL EXAMINATION: VITAL SIGNS: He has 98.3 temperature, 63 pulse, 129/62 blood pressure, 18 respiratory rate, and 100% saturation on room air. GENERAL: Feeling better. No complaints of chest pain or shortness of breath. No abdominal pain. HEENT: Head is atraumatic, normocephalic. HEART: Regular rate. LUNGS: Clear to auscultation. ABDOMEN: Soft. EXTREMITIES: No edema. MEDICATIONS: He is on Ecotrin, Lipitor, and Protonix. I am going to put him on Feosol 324 mg twice a day. LABORATORY DATA: He has 142 sodium, potassium 3.9, BUN 10, creatinine 0.8, sugar is 92, and calcium is 9. His iron is 14, percent saturation is 4%, very low. He is on iron. Total bili is 0.6, AST 23, ALT 25, alkaline phosphatase 54, and total protein is 5.7. White count is 6.8; hemoglobin is 8.3, much better than 6.5 and his platelets are 284. INR is 1.23. ASSESSMENT AND PLAN: He will be discharged today. He will follow up in the outpatient with Dr. Lala and Dr. Vaughn also, and Dr. Mayer in the next 2 weeks. Iron deficiency anemia and after we transfused 2 units, I changed him to observation status. Reid Mayer DO MTDD
== END 2017-06-07 19:16 | disposition home or self-care (01) ==
LOC: ED 17:16 → ERH 18:34 → INTOOBSV 18:34 → ERH 20:50 → 5RSO 22:17
PROVIDERS: ADMIT Family Medicine; ATTEND Family Medicine
DX: D50.9 Iron deficiency anemia, unspecified (principal); E78.5 Hyperlipidemia, unspecified; N40.0 Benign prostatic hyperplasia without lower urinary tract symptoms; Z79.82 Long term (current) use of aspirin; Z79.899 Other long term (current) drug therapy; Z87.11 Personal history of peptic ulcer disease; Z87.891 Personal history of nicotine dependence; Z90.49 Acquired absence of other specified parts of digestive tract; R40.2412 Glasgow coma scale score 13-15, at arrival to emergency department; Z87.19 Personal history of other diseases of the digestive system
CPT/HCPCS: 36415; 36430; 80053; 82607; 82728; 82746; 83540; 83550; 85025; 85027; 85610; 85730; 86850; 86900; 86920; 86921; 86922; 99285; C9113; G0378; J7030; P9016